=== PATIENT | female | born 1975 | race Hispanic/Latino ===

== ENCOUNTER 2018-10-20 13:46 | Outpatient (CLI) | payer BC ==
--- NOTE | 2018-10-20 15:00 | MMO ---
Left Breast MAMMO Unilat Diag [facility]DI LT+NEPTALI. CLINICAL HISTORY: Patient is 43 years old and is seen for additional evaluation requested from prior study. The patient has no family history of breast cancer. The patient has no personal history of cancer. VIEWS: The views performed were: left craniocaudal spot compression with tomosynthesis; left mediolateral oblique spot compression with tomosynthesis; and left mediolateral with tomosynthesis. FILMS COMPARED: The present examination has been compared to a prior imaging study performed at [facility] on 10/08/2018. MAMMOGRAM FINDINGS: There are scattered fibroglandular densities. Tomosynthesis compression images show the abnormality to represent superimpostion of normal breast parenchyma. There are no suspicious masses, suspicious calcifications, or new areas of architectural distortion. IMPRESSION: THERE IS NO MAMMOGRAPHIC EVIDENCE OF MALIGNANCY. A ROUTINE FOLLOW-UP MAMMOGRAM IN 1 YEAR IS RECOMMENDED. THE RESULTS OF THIS EXAM WERE SENT TO THE PATIENT. ACR BI-RADS Category 2 - Benign finding MAMMOGRAPHY NOTE: 1. A negative mammogram report should not delay a biopsy if a dominant of clinically suspicious mass is present. 2. Approximately 10% to 15% of breast cancers are not detected by mammography. 3. Adenosis and dense breasts may obscure an underlying neoplasm.
== END 2018-10-20 13:47 | disposition home or self-care (01) ==
LOC: BICMAMMO 13:46
PROVIDERS: ATTEND Advanced Practice Midwife
DX: N63.20 Unspecified lump in the left breast, unspecified quadrant (principal)
CPT/HCPCS: G0279